=== PATIENT | male | born 1935 | race Caucasian/White ===

== ENCOUNTER 2016-05-04 17:05 | Emergency (ER) | payer OTHER ==
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
[~2016-05-04 17:05] MED LIST: ACETAMINOPHEN; ATIVAN0.5 MG DOB; BACTRIM DS TABL1 TAB; BLOOD PRESSURE; CARDURA PO; CARDURA8 MG PO; CITRATE OF MAG296 ML; COLACE; DARVOCET-N 1001 TAB; DIFLUCAN; FLOMAX0.4 MG; HCTZ; HYTRIN; INDOMETHACIN50 MG PO; LASIX PO; LASIX20 MG PO; LEVAQUIN PO; LISINOPRIL; LISINOPRIL PO; LOPRESSOR; LOPRESSOR PO; NEURONTIN PO; NITROGLYCERIN0.4 MG SL; NORVASC PO; PHENERGAN PO; PLENDIL; PRILOSEC; SLEEP-AID25 MG PO; SLEEPING TABLET25 M1 PO; TRAZODONE HCL100 MG PO; UNKNOWN MED; XANAX0.5 MG PO; ZOCOR; ZOCOR PO; ZOCOR20 MG PO; [UNRECOGNIZED DRUG - REMARK]
== END 2016-05-04 17:49 | disposition home or self-care (01) ==
LOC: CED 17:05
DX: S16.1XXA Strain of muscle, fascia and tendon at neck level, initial encounter (principal); F17.200 Nicotine dependence, unspecified, uncomplicated; Z79.899 Other long term (current) drug therapy; V49.40XA Driver injured in collision with unspecified motor vehicles in traffic accident, initial encounter; Y92.488 Other paved roadways as the place of occurrence of the external cause
CPT/HCPCS: 70450; 72125; 73030; 99284